=== PATIENT | male | born 1975 | race American Indian/Alaskan Native ===

== ENCOUNTER 2019-01-22 17:06 | Emergency (ER) | payer SELFPAY ==
[2019-01-22 17:19] VITALS: BP 142/72
--- NOTE | 2019-01-22 17:21 | Emergency Department Report ---
Chief Complaint: Extremity Injury, Lower Stated Complaint: LFT FOREARM/RT LEG PAIN Time Seen by Provider: 01/22/19 17:17 - HPI History of Present Illness: This is a 44 y.o. M. that presents to the ER with left forearm pain and right leg numbness and tingling for 3 weeks. Denies injury Reports symptoms as intermittent, tingling MSE screening note: Focused history and physical exam performed. Due to findings the following was ordered: ED Disposition for MSE Condition: Stable
--- NOTE | 2019-01-22 17:49 | Emergency Department Report ---
Chief Complaint: Extremity Injury, Lower Stated Complaint: LFT FOREARM/RT LEG PAIN Time Seen by Provider: 01/22/19 17:17 - HPI History of Present Illness: SEVERAL MONTH HX LA PAIN- NO TRAUMA NO CP NO SOB PAIN IS SHARP AND TINGLING OF HAND WITH CERTAIN POSITIONS PMH NONE PSH NONE RX NONE PCP NONE - ROS Review of Systems: LA PAIN RLE PAIN- NO TRAUMA, MONTHS NO CP NO SOB NO FEVER NO CHILLS - Exam Vital Signs: Vital Signs 01/22/19 17:18 Temperature 98.4 F Pulse Rate 87 Respiratory 18 Rate Blood Pressure 142/72 O2 Sat by Pulse 98 Oximetry Physical Exam: ALERT ORIENTED HERE W FAMILY- ASKING FOR PAIN MEDS LIKE SHE GETS FULL ROM ALL 4 EXTREMITIES DP PLUS 2 RAD/ULNAR PULSE PLUS 2 RAPID CAP REFILL SUSPECT CARPEL TUNNEL/SOFT TISSUE MSE screening note: Focused history and physical exam performed. Due to findings the following was ordered: ED Medical Decision Making - Medical Decision Making DISCUSSED SOFT TISSUE INJURY/BONE INJURY WITH PT MSE WITH FOLLOW UP WITH ORTHO/PCP REFERRALS PROVIDED ED Disposition for MSE Clinical Impression: Arm pain, Leg pain Disposition: Z-07 MED SCREENING EXAM-LEFT Is pt being admited?: No Does the pt Need Aspirin: No Condition: Stable Additional Instructions: FOLLOW UP WITH PCP AND ORTHO MD REFERRALS BELOW MOTRIN 800 MG PRN FOR PAIN- OVER THE COUNTER TAKE WITH FOOD HYDRATE WELL WITH WATER Referrals: PAUL PATIÑO MD [Staff Physician] - 3-5 Days OVIDIO ANDERSON MD [Staff Physician] - 3-5 Days Time of Disposition: 17:48
== END 2019-01-22 18:14 | disposition left against medical advice (07) ==
LOC: ED 17:06
DX: M79.602 Pain in left arm (principal); M79.605 Pain in left leg; Z91.013 Allergy to seafood
CPT/HCPCS: 99281

== ENCOUNTER 2019-03-17 21:46 | Emergency (ER) | payer OTHER ==
[2019-03-17 21:56] VITALS: BP 103/69
[2019-03-17] MEDS ORDERED: IBUPROFEN 600 MG TAB PO ONE ×2 (21:56→21:58)
--- NOTE | 2019-03-17 21:56 | Emergency Department Report ---
Blank Doc - Documentation Documentation: 44-year-old male that presents with URI symptoms. This initial assessment/diagnostic orders/clinical plan/treatment(s) is/are subject to change based on patient's health status, clinical progression and re- assessment by fellow clinical providers in the ED. Further treatment and workup at subsequent clinical providers discretion. Patient/guardians urged not to elope from the ED as their condition may be serious if not clinically assessed and managed. Initial orders include: 1- Patient sent to [facility] for further evaluation and treatment 2- CXR
--- NOTE | 2019-03-17 23:03 | XRay Report ---
CHEST PA AND LATERAL VIEWS INDICATION: cough. COMPARISON: None. FINDINGS: Support devices: None. Heart: Within normal limits. Lungs/Pleura: No acute pulmonary or pleural findings. IMPRESSION: 1. No acute findings. Signer Name: Fabio Roberson MD Signed: 03/17/2019 10:59 PM Workstation Name: [id number]
--- NOTE | 2019-03-18 01:06 | Emergency Department Report ---
HPI - General Chief Complaint: Upper Respiratory Infection Time Seen by Provider: 03/17/19 21:55 - HPI HPI: Room 29 The patient is a 44-year-old male presenting with chief complaint of sore throat. Body aches. Patient states for the past 2 weeks his bones felt cold he's had a sore throat and cough occasionally productive of yellow sputum. Patient denies rhinorrhea but admits to fever 102F. Location: [See above] Duration: [See above] Quality: [See above] Severity: [See above] Timing: [See above] Context: [See above] Modifying factors: [See above] Associated signs and symptoms: [see above] ED Past Medical Hx - Past Medical History Previous Medical History?: No - Surgical History Past Surgical History?: No - Family History Family history: no significant - Social History Smoking Status: Never Smoker Substance Use Type: None - Medications Home Medications: Home Medications Medication Instructions Recorded Confirmed Last Taken Type Albuterol INH(or & Nicu Only) 2 puff IH QID PRN #8.5 gram 03/18/19 Unknown Rx [ProAir HFA Inhaler] Amoxicillin/Potassium Clav 1 each PO BID #20 tablet 03/18/19 Unknown Rx [Augmentin 875-125 Tablet] Benzonatate [Tessalon Perles] 100 mg PO Q8HR #30 capsule 03/18/19 Unknown Rx HYDROcodone/APAP 5-325 [[place] 1 - 2 each PO Q6HR PRN #14 tablet 03/18/19 Unknown Rx 5/325] Ibuprofen [Motrin 800 MG tab] 800 mg PO Q8HR PRN #20 tablet 03/18/19 Unknown Rx ED Review of Systems ROS: Stated complaint: FLU SX Other details as noted in HPI Constitutional: chills, fever Eyes: denies: eye pain ENT: throat pain. denies: congestion Respiratory: cough Cardiovascular: denies: chest pain Endocrine: no symptoms reported Gastrointestinal: denies: abdominal pain Genitourinary: denies: dysuria Musculoskeletal: myalgia Neurological: denies: headache Physical Exam - Physical Exam Vital Signs: Vital Signs 03/17/19 03/17/19 03/17/19 21:50 21:53 22:02 Temperature 100.0 F H 100 F H Pulse Rate 105 H 107 H Respiratory 18 18 18 Rate Blood Pressure 93/61 103/69 O2 Sat by Pulse 96 97 Oximetry 03/17/19 22:55 Temperature Pulse Rate Respiratory 18 Rate Blood Pressure O2 Sat by Pulse Oximetry Physical Exam: GENERAL: The patient is well-developed well-nourished male sitting in chair not appearing to be in acute distress. [] HEENT: Normocephalic. Atraumatic. Extraocular motions are intact. Patient has moist mucous membranes. Oropharynx erythematous scant amount of exudate seen on the left NECK: Supple. Trachea midline CHEST/LUNGS: Clear to auscultation. There is no respiratory distress noted. HEART/CARDIOVASCULAR: Regular. There is no tachycardia. There is no gallop rub or murmur. ABDOMEN: Abdomen is soft, nontender. Patient has normal bowel sounds. There is no abdominal distention. SKIN: There is no rash. There is no edema. There is no diaphoresis. NEURO: The patient is awake, alert, and oriented. The patient is cooperative. The patient has normal speech MUSCULOSKELETAL: There is no evidence of acute injury. ED Course Vital Signs 03/17/19 03/17/19 03/17/19 21:50 21:53 22:02 Temperature 100.0 F H 100 F H Pulse Rate 105 H 107 H Respiratory 18 18 18 Rate Blood Pressure 93/61 103/69 O2 Sat by Pulse 96 97 Oximetry 03/17/19 22:55 Temperature Pulse Rate Respiratory 18 Rate Blood Pressure O2 Sat by Pulse Oximetry ED Medical Decision Making - Lab Data Laboratory Tests 03/18/19 01:04 Influenza A (Rapid) Negative Influenza B (Rapid) Negative - Radiology Data Radiology results: report reviewed (chest x-ray), image reviewed (chest x-ray) interpreted by me: Chest x-ray-no focal infiltrates, no pneumothorax [facility] [address] [place] [address] XRay Report Signed Patient: RUBY MEDINA MR#: [id number] : 1975 Acct:[id number] Age/Sex: 44 / M ADM Date: 03/17/19 Loc: ED Attending Dr: Ordering Physician: PERRY BAUTISTA NP Date of Service: 03/17/19 Procedure(s): XR chest routine 2V Accession Number(s): [id number] cc: PERRY BAUTISTA NP Fluoro Time In Minutes: CHEST PA AND LATERAL VIEWS INDICATION: cough. COMPARISON: None. FINDINGS: Support devices: None. Heart: Within normal limits. Lungs/Pleura: No acute pulmonary or pleural findings. IMPRESSION: 1. No acute findings. Signer Name: Fabio Roberson MD Signed: 03/17/2019 10:59 PM Workstation Name: [id number] Transcribed By: CAMMY Dictated By: Fabio Roberson MD Electronically Authenticated By: Fabio Roberson MD Signed Date/Time: 03/17/192258 DD/ 58 TD/TT: - Differential Diagnosis influenza, pneumonia, pharyngitis Critical care attestation.: If time is entered above; I have spent that time in minutes in the direct care of this critically ill patient, excluding procedure time. ED Disposition Clinical Impression: Pharyngitis, acute Disposition: - TO HOME OR SELFCARE Is pt being admited?: No Does the pt Need Aspirin: No Condition: Stable Instructions: Pharyngitis (ED) Additional Instructions: Return to the emergency department should you develop worsening symptoms, inability to tolerate food or liquids, high fever or any other concerns Prescriptions: Amoxicillin/Potassium Clav [Augmentin 875-125 Tablet] 1 each PO BID #20 tablet Ibuprofen [Motrin 800 MG tab] 800 mg PO Q8HR PRN #20 tablet PRN Reason: Pain, Moderate (4-6) HYDROcodone/APAP 5-325 [[place] 5/325] 1 - 2 each PO Q6HR PRN #14 tablet PRN Reason: Pain Albuterol INH(or & Nicu Only) [ProAir HFA Inhaler] 2 puff IH QID PRN #8.5 gram PRN Reason: Shortness Of Breath Benzonatate [Tessalon Perles] 100 mg PO Q8HR #30 capsule Referrals: [facility] [Outside] - 3-5 Days Time of Disposition: 02:12
== END 2019-03-18 02:31 | disposition home or self-care (01) ==
LOC: ED 21:46
DX: J02.9 Acute pharyngitis, unspecified (principal); Z91.013 Allergy to seafood
CPT/HCPCS: 71046; 87400